=== PATIENT | female | born 1965 | race Caucasian/White ===

== ENCOUNTER 2017-03-04 14:00 | Emergency (ER) | payer MEDICAID ==
[~2017-03-04 14:00] MED LIST: AMLODIPINE BESYL5 M1 PO; COLACE100 MG PO; FAMOTIDINE20 MG PO; IBUPROFEN PO; LAC PO; LACTULOSE10 GM/152 PO; LEVAQUIN750 MG PO; NOR10T PO; SYNTHROID0.05 MG PO
[2017-03-04 16:44] LABS: BASOPHIL % 0.3 % (0-2); PLATELET COUNT 231 x10^3mcL (130-400); RED CELL DISTRIBUTION WIDTH 13.5 % (11.5-14.5)
[2017-03-04 16:56] LABS: CALCIUM 8.6 mg/dL (8.5-10.1); CARBON DIOXIDE 27.3 mmol/L (21-32); CHLORIDE SERUM 106 mmol/L (98-107); CREATININE SERUM 0.8 mg/dL (0.6-1.0); GFR1 > 60 mL/min; GLUCOSE SERUM 100 mg/dL (74-106); POTASSIUM SERUM 3.6 mmol/L (3.5-5.1); SODIUM SERUM 143 mmol/L (136-145)
[2017-03-04 17:09] LABS: ALBUMIN 3.7 g/dL (3.4-5.0); ALKALINE PHOSPHATASE 194 U/L (46-116); ALT/SGPT 47 U/L (14-59); AST/SGOT 35 U/L (15-37); BILIRUBIN TOTAL 1.2 mg/dL (0.20-1.00); T4(THYROXINE) 7.5 ug/dL (4.7-13.3)
[2017-03-04 18:06] VITALS: BP 137/75
== END 2017-03-04 18:06 | disposition home or self-care (01) ==
LOC: ED 14:00
PROVIDERS: Emergency Medicine
DX: R42 Dizziness and giddiness (principal); R20.0 Anesthesia of skin; R51 Headache; E03.9 Hypothyroidism, unspecified; I10 Essential (primary) hypertension; Z88.6 Allergy status to analgesic agent
CPT/HCPCS: J7040

== ENCOUNTER 2017-08-17 12:02 | Emergency (ER) | payer MEDICAID ==
[2017-08-17 13:58] VITALS: BP 118/86
== END 2017-08-17 13:56 | disposition home or self-care (01) ==
LOC: ED 12:02
DX: G44.209 Tension-type headache, unspecified, not intractable (principal); I10 Essential (primary) hypertension; Z90.710 Acquired absence of both cervix and uterus; Z88.6 Allergy status to analgesic agent

== ENCOUNTER 2018-05-26 08:58 | Emergency (ER) | payer MEDICAID ==
[~2018-05-26] VITALS: Ht 157.5 cm; Wt 74.0 kg
[2018-05-26 09:37] LABS: microscopic required? NO
[2018-05-26 09:45] LABS: UA SPECIFIC GRAVITY <=1.005 (1.005-1.035); urine erythrocyte NEGATIVE (NEGATIVE)
[2018-05-26 10:11] VITALS: BP 151/88
== END 2018-05-26 10:11 | disposition home or self-care (01) ==
LOC: ED 08:58
PROVIDERS: Emergency Medicine
DX: R51 Headache (principal); I10 Essential (primary) hypertension; E03.9 Hypothyroidism, unspecified; R42 Dizziness and giddiness; R68.83 Chills (without fever); Z90.710 Acquired absence of both cervix and uterus; Z88.6 Allergy status to analgesic agent

== ENCOUNTER 2018-08-16 18:56 | Emergency (ER) | payer MEDICAID ==
[~2018-08-16] VITALS: Ht 152.4 cm; Wt 73.5 kg
[2018-08-16 18:59] VITALS: Ht 152.4 cm; Wt 73.5 kg
[2018-08-16 20:23] VITALS: BP 142/68
== END 2018-08-16 20:23 | disposition home or self-care (01) ==
LOC: ED 18:56
DX: S63.91XA Sprain of unspecified part of right wrist and hand, initial encounter (principal); S43.401A Unspecified sprain of right shoulder joint, initial encounter; I10 Essential (primary) hypertension; E03.9 Hypothyroidism, unspecified; Z90.710 Acquired absence of both cervix and uterus; Z98.890 Other specified postprocedural states; Z88.5 Allergy status to narcotic agent; W01.0XXA Fall on same level from slipping, tripping and stumbling without subsequent striking against object, initial encounter; Y93.89 Activity, other specified; Y92.89 Other specified places as the place of occurrence of the external cause; Y99.8 Other external cause status
CPT/HCPCS: Q0092

== ENCOUNTER 2018-09-09 10:17 | Emergency (ER) | payer MEDICAID ==
[~2018-09-09] VITALS: Ht 152.4 cm; Wt 71.7 kg
[2018-09-09 11:06] VITALS: Ht 152.4 cm; Wt 71.7 kg
[2018-09-09 15:20] VITALS: BP 132/82
== END 2018-09-09 15:20 | disposition home or self-care (01) ==
LOC: ED 10:17
DX: J06.9 Acute upper respiratory infection, unspecified (principal); I10 Essential (primary) hypertension; E03.9 Hypothyroidism, unspecified; Z98.890 Other specified postprocedural states; Z88.6 Allergy status to analgesic agent; Z90.710 Acquired absence of both cervix and uterus

== ENCOUNTER 2019-02-19 09:58 | Emergency (ER) | payer MEDICAID ==
[~2019-02-19] VITALS: Ht 152.4 cm; Wt 71.2 kg
[2019-02-19 10:13] VITALS: Ht 152.4 cm; Wt 71.2 kg
[2019-02-19 11:46] VITALS: BP 131/73
== END 2019-02-19 11:46 | disposition home or self-care (01) ==
LOC: ED 09:58
DX: R10.13 Epigastric pain (principal); R20.0 Anesthesia of skin; R19.7 Diarrhea, unspecified; I10 Essential (primary) hypertension; E03.9 Hypothyroidism, unspecified; Z90.710 Acquired absence of both cervix and uterus; Z98.890 Other specified postprocedural states; Z88.8 Allergy status to other drugs, medicaments and biological substances
CPT/HCPCS: J2270; Q0162

== ENCOUNTER 2019-09-26 20:56 | Emergency (ER) | payer SELFPAY ==
[~2019-09-26] VITALS: Ht 152.4 cm; Wt 70.8 kg
[2019-09-26 21:18] VITALS: BP 141/84; Ht 152.4 cm; Wt 70.8 kg
== END 2019-09-26 22:58 | disposition home or self-care (01) ==
LOC: ED 20:56
DX: J02.9 Acute pharyngitis, unspecified (principal); I10 Essential (primary) hypertension; E03.9 Hypothyroidism, unspecified; Z90.710 Acquired absence of both cervix and uterus; Z88.6 Allergy status to analgesic agent

== ENCOUNTER 2019-12-12 18:24 | Emergency (ER) | payer MEDICAID ==
[~2019-12-12] VITALS: Ht 157.5 cm; Wt 68.0 kg
[2019-12-12 18:30] VITALS: Ht 157.5 cm; Wt 68.0 kg
[2019-12-12 19:27] LABS: BASOPHIL % 0.4 % (0-2); PLATELET COUNT 195 x10^3mcL (130-400); RED CELL DISTRIBUTION WIDTH 13.2 % (11.5-14.5)
[2019-12-12 19:34] LABS: CALCIUM 8.5 mg/dL (8.5-10.1); CARBON DIOXIDE 24.8 mmol/L (21-32); CHLORIDE SERUM 106 mmol/L (98-107); CREATININE SERUM 0.6 mg/dL (0.6-1.0); GFR1 > 60 mL/min; GLUCOSE SERUM 93 mg/dL (74-106); POTASSIUM SERUM 3.4 mmol/L (3.5-5.1); SODIUM SERUM 143 mmol/L (136-145)
[2019-12-12 19:35] LABS: microscopic required? NO
[2019-12-12 19:41] LABS: ALBUMIN 3.6 g/dL (3.4-5.0); ALKALINE PHOSPHATASE 313 U/L (46-116); ALT/SGPT 72 U/L (14-59); AST/SGOT 49 U/L (15-37); BILIRUBIN TOTAL 0.8 mg/dL (0.20-1.00); CHOLESTEROL 180 mg/dL (<200); HDL CHOLESTEROL 53 mg/dL (40-60); MAGNESIUM 2.4 mg/dL (1.8-2.4); TOTAL PROTEIN, SERUM 8.1 g/dL (6.4-8.2)
[2019-12-12 19:44] LABS: urine erythrocyte NEGATIVE (NEGATIVE)
[2019-12-12 19:49] LABS: FREE T4 1.62 ng/dL (0.76-1.46); T4(THYROXINE) 14.3 ug/dL (4.7-13.3)
[2019-12-12 19:51] LABS: T3 TOTAL 1.32 ng/mL
[2019-12-12 21:15] VITALS: BP 131/66
== END 2019-12-12 21:15 | disposition home or self-care (01) ==
LOC: ED 18:24
PROVIDERS: Emergency Medicine
DX: R53.1 Weakness (principal); R55 Syncope and collapse; R51 Headache; I10 Essential (primary) hypertension; R11.0 Nausea; R25.1 Tremor, unspecified; H53.8 Other visual disturbances; E03.9 Hypothyroidism, unspecified; Z98.890 Other specified postprocedural states; Z90.710 Acquired absence of both cervix and uterus; Z88.8 Allergy status to other drugs, medicaments and biological substances
CPT/HCPCS: 84439